=== PATIENT | male | born 1950 | race Caucasian/White ===

== ENCOUNTER 2020-05-26 05:40 | Day surgery (SDC) | payer BC ==
[2020-05-25 11:55] VITALS: BMI 21.1
[2020-05-26] MEDS ORDERED: Levofloxacin 500 mg/D5W 100 ml Premix Bag ONE (05:51)
[2020-05-26] MEDS ORDERED: Clindamycin/D5W 900 mg/50 ml Premix Bag ONE (05:51)
--- NOTE | 2020-05-26 05:53 | HP ---
REASON FOR H AND P: Surgery on 05/26/2020, case #[id number]. 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 Pain radiates into his right gluteal muscle, posterolateral thigh, lateral calf, plantar aspect of his foot and great big toe. He use to walk 6-7 miles daily and he is now down to 3 miles or less. MRI indicated a synovial cyst. The patient was referred to Pain Management. Pain management attempted synovial cyst aspiration with steroid administration. First injection did help, but the second injection did not give any relief of symptoms. Injections did improv his right footdrop. He would like to proceed with surgery. Denies bladder or bowel dysfunction. REVIEW OF SYSTEMS: CONSTITUTIONAL: Denies fever or chills. ENT: Denies change in vision or hearing. CARDIAC: Denies chest pain, shortness of breath, or diaphoresis. PULMONARY: Denies shortness of breath, cough, or hemoptysis. GI: Denies fecal incontinence, abdominal pain, nausea, vomiting, diarrhea, or change in stool formation and consistency. : Denies urinary incontinence, trouble with urination, frequency of urination, or bloody urine. SKIN: Denies skin rash, bruising, bleeding, or skin masses. MUSCULOSKELETAL: As per history of present illness. NEUROLOGICAL: As per history of present illness. PSYCHOLOGICAL: Denies anxiety, depression, or behavior changes. PAST MEDICAL HISTORY: Prostate cancer, allergies, and chronic pain. PAST SURGICAL HISTORY: Prostatectomy in 2002. PAST HOSPITALIZATIONS: surgery. FAMILY HISTORY: Father . Family history unknown. Mother . SOCIAL HISTORY: Smoker, less than half pack per day. Alcohol, daily wine. Denies illicit drug use. MEDICATIONS: 1. Ibuprofen 200 mg. 2. CoQ10 of 100 mg daily. 3. Aspirin. 4. Rosuvastatin 5 mg. ALLERGIES: PENICILLIN, SULFA, TETRACYCLINE, DOXYCYCLINE, AND RIFAMPIN. PHYSICAL EXAMINATION: VITAL SIGNS: Weight 140, height 68 inches, and BMI 21.28. HEENT: Pupils are equal. Extraocular movements are intact. NECK: Soft, supple. No masses are noted. Range of motion is intact and nonpainful. NEUROLOGICAL: Awake, alert, and oriented x3. Memory, attention, fund of knowledge, normal. Language is normal. Cranial nerves grossly intact. Gait and station are normal. No footdrop noted. Motor exam, normal leg strength. Sensory exam, paresthesias in L5 and more so in S1. No loss of sensation. IMAGING DATA: MRI of the L-spine, right L4-5 synovial cyst and lateral recess trapping the L5 nerve root. Moderate L5-S1 lateral recess stenosis affecting the right S1 nerve root. X-ray of the L-spine flexion-extension, stable. ASSESSMENT: 1. Lumbar spondylosis with radiculopathy of the lumbar region. 2. Other bursa cyst. PLAN: 1. Laminectomy with right L4-5 synovial cystectomy and a right L5-S1 hemilaminectomy. 2. Preop labs, CBC, PT, PTT, COVID-19 test. 3. Clearance. INFORMED CONSENT: We discussed the indications, risks, benefits, alternatives, and expected results from surgery. The risks discussed included, but were not limited to, bleeding, infection, CSF leak, nerve damage, weakness, incontinence, cauda equina injury, arachnoiditis, paralysis, ventilator dependency, wheelchair dependency, loss of vision, cardiopulmonary complications of anesthesia, or . Long-term complications discussed included, but were not limited to spinal instability and future surgery. He understands the risks and is willing to proceed. Job ID: [id number] [facility]
[2020-05-26] MEDS ORDERED: Thrombin 5000 UNITS/5 ML VIAL ONE (06:14)
[2020-05-26] MEDS ORDERED: EPINEPHrine 1 MG/ML AMP ONE (06:14)
[2020-05-26] MEDS ORDERED: Bupivacaine PF 0.5% 30 ML VIAL ONE (06:14)
[2020-05-26] MEDS ORDERED: Midazolam HCl 2 mg/2 ml Vial ONE (06:56)
[2020-05-26] MEDS ORDERED: Ondansetron PF 4 MG/2 ML Vial ONE (06:56)
[2020-05-26] MEDS ORDERED: Dexamethasone 20 MG/5 ML VIAL ONE (06:56)
[2020-05-26] MEDS ORDERED: Fentanyl 100 MCG/2 ML VIAL ONE ×2 (06:56→09:31)
[2020-05-26] MEDS ORDERED: Phenylephrine 10 MG/ML VIAL ONE (07:58)
[2020-05-26] MEDS ORDERED: PHENYLEPHRINE-NS 100 MCG/ML 10 ML SYRINGE ONE (07:58)
[2020-05-26] MEDS ORDERED: Tamsulosin HCl 0.4 MG CAP ONE (09:35)
--- NOTE | 2020-05-26 10:05 | OP ---
DATE OF PROCEDURE: 05/26/2020 SLURRY MIXER: Leandro Clarke PA-C PREOPERATIVE INDICATION: Treat pain and prevent neurological deterioration. PREOPERATIVE DIAGNOSES: 1. Severe right L5 radiculopathy with some S1 radiculopathy. 2. 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 POSTOPERATIVE DIAGNOSES: 1. Severe right L5 radiculopathy with some S1 radiculopathy. 2. 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 PROCEDURES PERFORMED: Hemilaminectomy with medial facetectomy and foraminotomy at L4-L5 and L5-S1 on the right, microsurgical resection of synovial cyst, operating microscope. PREOPERATIVE MEDICATIONS: Levaquin 500 mg IV, clindamycin 900 mg IV. DRAIN NUMBER: Zero. DRAIN TYPE: None. DESCRIPTION OF PROCEDURE: The patient was brought to the operating room. General endotracheal anesthesia was induced. The patient was positioned prone on the operating table with his chest and hips supported by gel-filled chest rolls. A lateral fluoro radiograph was used to plan our incision. The lumbar skin was sterilely prepped and draped. We opened with a 10 blade knife and we controlled bleeding with bipolar and monopolar cautery. We used monopolar cautery to dissect through subcutaneous tissues to the thoracodorsal fascia. We incised the fascia just to the right of the midline. We reflected the paraspinal muscles off the spinous process and the lamina of L4, L5, and S1. A self-retaining retractor was placed. A lateral fluoro radiograph confirmed the levels upon which we were operating. We then used bone rongeurs to thin the lamina at L4 and L5 on the right side. Kerrison rongeurs were used to fashion a hemilaminectomy. We widened by performing medial facetectomies at L4-5 and L5-S1 and removed the yellow ligament. We could visualize a synovial cyst at L4-L5 and some lateral recess decompression at L5-S1. The operating microscope was brought into the field. Under microscopic magnification and using microsurgical techniques, we carefully peeled the synovial cyst off the shoulder of the L5 nerve root on the right. The cyst had some hemorrhagic material inside and there was some hemosiderin deposition on the nerve itself. I removed the hemorrhagic synovial cyst in a piecemeal fashion and amputated its connection with the facet joint. This decompressed the L5 nerve root traumatically in the lateral recess. In the foramen, we needed to use foraminotomy, Kerrison to widen the L5-S1 foramen to allow a Church ball probe to leave the spine with the nerve root without impingement. At L5-S1, we performed medial facetectomy until the S1 nerve root had no bone spurs behind it. The lateral recess was decompressed from the inferior portion of the pedicle of L4 all the way past the pedicle of S1. We irrigated with bacitracin irrigation. We waxed the bone edges. We infused local anesthetic in the paraspinal muscles. We treated the wound with vancomycin powder (the patient is a smoker). We removed the operating microscope and closed the wound in anatomical layers. This was a clean case, no contamination. Job ID: [id number]
[2020-05-26] MEDS ORDERED: Sodium Chloride 0.9% 0 ML ONE (11:05)
== END 2020-05-26 12:38 | disposition home or self-care (01) ==
LOC: SDC 05:40
PROVIDERS: ATTEND Neurological Surgery
PROC: 0SB00ZZ Excision of Lumbar Vertebral Joint, Open Approach (ICD-10-PCS; principal; 2020-05-26)
PROC: 01NB0ZZ Release Lumbar Nerve, Open Approach (ICD-10-PCS; principal; 2020-05-26)
DX: M48.061 Spinal stenosis, lumbar region without neurogenic claudication (principal); M48.07 Spinal stenosis, lumbosacral region; M71.38 Other bursal cyst, other site; M47.26 Other spondylosis with radiculopathy, lumbar region; M21.371 Foot drop, right foot; F17.210 Nicotine dependence, cigarettes, uncomplicated; E78.5 Hyperlipidemia, unspecified; Z85.46 Personal history of malignant neoplasm of prostate; Z79.82 Long term (current) use of aspirin; Z79.899 Other long term (current) drug therapy; Z88.0 Allergy status to penicillin; Z88.1 Allergy status to other antibiotic agents; Z88.2 Allergy status to sulfonamides
CPT/HCPCS: 76000; J0171; J1100; J1956; J2250; J2370; J2405; J3010; J3370; J3490; S0020

== ENCOUNTER 2020-11-06 06:17 | Day surgery (SDC) | payer BC ==
[2020-11-05 11:48] VITALS: BMI 21.7
[2020-11-06] MEDS ORDERED: Levofloxacin 500 mg/D5W 100 ml Premix Bag ONE (08:31)
[2020-11-06] MEDS ORDERED: Propofol 1,000 MG/100 ML VIAL IV ONE (08:38)
[2020-11-06] MEDS ORDERED: Midazolam HCl 2 mg/2 ml Vial ONE ×2 (08:38→08:50)
[2020-11-06] MEDS ORDERED: Fentanyl 100 MCG/2 ML VIAL ONE ×2 (08:38→08:50)
[2020-11-06] MEDS ORDERED: Lidocaine 1% w/Epinephrine 1:100K 20 ML VIAL ONE (08:39)
[2020-11-06] MEDS ORDERED: Bupivacaine 0.25% HCL 30 ML VIAL ONE (08:39)
[2020-11-06] MEDS ORDERED: Ondansetron PF 4 MG/2 ML Vial ONE (08:52)
[2020-11-06] MEDS ORDERED: Ketorolac Tromethamine 30 MG/ML VIAL ONE (08:52)
[2020-11-06] MEDS ORDERED: Dexamethasone 20 MG/5 ML VIAL ONE (08:52)
== END 2020-11-06 12:10 | disposition home or self-care (01) ==
LOC: SDC 06:17
PROVIDERS: ATTEND Surgery
PROC: 0YU60JZ Supplement Left Inguinal Region with Synthetic Substitute, Open Approach (ICD-10-PCS; principal; 2020-11-06)
DX: K40.91 Unilateral inguinal hernia, without obstruction or gangrene, recurrent (principal); K66.0 Peritoneal adhesions (postprocedural) (postinfection); F17.210 Nicotine dependence, cigarettes, uncomplicated; Z88.0 Allergy status to penicillin; Z88.1 Allergy status to other antibiotic agents; Z88.2 Allergy status to sulfonamides; Z79.1 Long term (current) use of non-steroidal anti-inflammatories (NSAID); Z79.82 Long term (current) use of aspirin; Z79.899 Other long term (current) drug therapy; Z98.890 Other specified postprocedural states
CPT/HCPCS: J1100; J1885; J1956; J2250; J2405; J2704; J3010; S0020